=== PATIENT | male | born 1995 | race Native Hawaiian/Other Pacific Islander ===

== ENCOUNTER 2021-07-05 21:33 | Emergency (ER) | payer OTHER ==
[~2021-07-05] VITALS: Ht 170.2 cm; Wt 99.8 kg
[2021-07-05 21:52] LABS: PLATELET COUNT 259 K/uL (142-355)
[2021-07-05 22:01] LABS: POTASSIUM 2.7 mmol/L (3.6-5.2)
[2021-07-05 23:35] VITALS: BP 120/75; TEMP 97.5
== END 2021-07-05 23:40 | disposition home or self-care (01) ==
LOC: ED 21:33
PROVIDERS: Emergency Medicine Emergency Medical Services
DX: F19.10 Other psychoactive substance abuse, uncomplicated (principal); R06.4 Hyperventilation
CPT/HCPCS: 36600; 80048; 80307; 80320; 82805; 84484; 85027; 93005; 96360; 99284